=== PATIENT | male | born 1975 | race Caucasian/White ===

== ENCOUNTER 2017-02-13 09:22 | Inpatient (IN) | payer OTHER ==
[~2017-02-13] VITALS: Ht 188 cm; Wt 104.5 kg
--- NOTE | ~2017-02-13 | INDIVTXPLN ---
"PATIENT: HIRA GONZALEZ | | [facility] UNIT #: [id number] | [address] AGE/SEX: 41 M : 71 | [address] | [place] [address] ADMIT/REG DATE: 02/13/17 | ROOM: A.[facility] LOC: ADTC | ADTC | Individualized Treatment Plan Date: 03/08/17 Problem Statement/Issue Identified: I look more at others defects than I look at mine. Goal: I want to look more at what I bowl attendant work on. Objectives/Activities to achieve goal: 1. I will read and complete a denial packet and share what I learned with my counselor and in group. Due Date:03/12/17 Complete: Incomplete: 2. I will read and high lite work I relate to in a Dev Baby packet and share it with my counselor. Due Date:03/13/17 Complete: Incomplete: Client signature Date Counselor signature Date Outcome/Measurement of Progress Towards Goal: Counselor's signature Date "
--- NOTE | ~2017-02-13 | RESCARESUM ---
"PATIENT: HIRA GONZALEZ | | [facility] UNIT #: [id number] | [address] AGE/SEX: 41 M : 71 | [address] | [place] [address] ADMIT/REG DATE: 02/13/17 | ROOM: [facility] LOC: ADTC | ADTC | Summary of Residential Care Primary Counselor: MJ Al, ELIANE, LIYAT Date of Admission: 02/13/17 Date of Discharge: 03/13/17 Referral Source: Probation Primary Care Provider Prior to Admission: None Admitting Diagnosis: F10.20 Alcohol Use Disorder Severe Discharge Diagnosis: Same Goals Achieved: Client did minimal work on his assignments. He appeared to be more focused on others than his self and what his needs to do. He completed a Getting Started packet, a step one, read the chapter on acceptance, wrote feelings letters to his and one together to his daughters, he wa to write them seperately. He was to complete a denial packet but conveniently lost it. Client read a Dev Baby packet but completely missed the point. Client minimized his using triggers and continued to blame others for his drinking and did not own it. Continued Obstacles to Sobriety/Relapse Issues: Client needs to focus on his self and not others and what they need to do and be open enough to look at what he is being told and not thinking he has all the answers. Client did make a good decision to dtay at the [facility] for a while before going back to [place]. Family Issues Addressed: No family issues were addressed as not family wswill ing to come to a family session or family education. Client spent most of the time talking about what his needs to do andhow his drinking did not affect his kids as he was always there with them. y Individual Therapy y Group Therapy y Educational Series on Substance Abuse n Parents/Significant Others Attended Family Program n Acute Medical Problems During the Course of Treatment n Transferred to Hospital During the Course of Treatment y Accepting of Substance Abuse Problem n Non-accepting of Substance Abuse Problem n Required Psychological or Psychiatric Consultation During the Course of Treatment Completed AA Step # one During This Level of Care Significant Incidences During Treatment: Client was getting a little better looking at his self but still thinks he did not do a lot of damage with his drinking. Reason For Discharge: PATIENT: HIRA GONZALEZ | | [facility] UNIT #: [id number] | [address] AGE/SEX: 41 M : 71 | [address] | [place] [address] ADMIT/REG DATE: 02/13/17 | ROOM: [facility] LOC: ADTC | ADT | Summary of Residential Care y Completed Residential TX Goals and Ready For Next Level of Care n Left Tx Against Medical Advice/Treatment Goals Not Complete n Completed Residential Tx Goals But Refusing Continuing Care Recommendations n Discharged Due to Noncompliance/Treatment Goals not Completed n Discharged Earlier Than Planned Due to: Continuing Care Plan/Recommendations: n Intensive Partial Care y Sponsor n Partial Care y AA Meetings/NA Meetings y Outpatient y Co-dependency Services y Therapeutic Community y [address] [place] n Mental Health Therapy n Marriage Counseling n Other Specific Continuing Care Plan: Client went [facility] couple months he said. He appeared to be going for a while but did not comitt to the full recommendations of the [facility]. PRIMARY COUNSELOR: Robson Salguero, MJ, LADC, CSAT"
--- NOTE | ~2017-02-13 | TXPLANREV ---
"PATIENT: HIRA GONZALEZ | | [facility] UNIT #: [id number] | [address] AGE/SEX: 41 M : 71 | [address] | [place] [address] ADMIT/REG DATE: 02/13/17 | ROOM: A.[facility] LOC: ADTC | ADTC | Treatment Plan/Staffing Review Date: 03/08/19 Treatment plan was reviewed and determined appropriate as written: Yes Treatment plan was reviewed and the following changes/addition/deletions are necessary: Client [facility] Discharge plans were reviewed and determined appropriate as previously documented: Yes Discharge plans were reviewed and determined to be as follows: Client is scheduled to discharge on 03/13/17 and will be going to the [facility]. Other pertinent issues discussed during this staffing review include: Client is doing a better job looking at others adn their issues than his own. Staff Present: Maribel Carter, Jes Zambrano, Ludmila Vaughan PRIMARY COUNSELOR: Robson Salguero, MJ, ELIANE, LIYAT Client Signature Counselor Signature Date Time "
--- NOTE | ~2017-02-13 | TXPLANREV ---
"PATIENT: HIRA GONZALEZ | | [facility] UNIT #: [id number] | [address] AGE/SEX: 41 M : 71 | [address] | [place] [address] ADMIT/REG DATE: 02/13/17 | ROOM: A.[facility] LOC: ADTC | ADTC | Treatment Plan/Staffing Review Date: 03/01/17 Treatment plan was reviewed and determined appropriate as written: Yes Treatment plan was reviewed and the following changes/addition/deletions are necessary: No changes Discharge plans were reviewed and determined appropriate as previously documented: Yes Discharge plans were reviewed and determined to be as follows: Client is scheduled to discharge on03/13/17 and is applying at the [facility]. Other pertinent issues discussed during this staffing review include: Clientis doing well and is not goingto have any family here for education so he will go by his self starting today. Staff Present: Stacie Zambrano PRIMARY COUNSELOR: Robson Salguero, MJ, LADC, CSAT Client Signature Counselor Signature Date Time "
--- NOTE | ~2017-02-13 | INDIVTXPLN ---
"PATIENT: HIRA GONZALEZ | | [facility] UNIT #: [id number] | [address] AGE/SEX: 41 M : 71 | [address] | [place] [address] ADMIT/REG DATE: 02/13/17 | ROOM: A.[facility] LOC: ADTC | ADTC | Individualized Treatment Plan Date: 02/22/17 Problem Statement/Issue Identified: I struggle identifying and sharing my feelings. Goal: I want to be able to identify and share my feelings. Objectives/Activities to achieve goal: 1. I will write feelings letters to my and daughters and share them with my counselor and in group. Due Date:03/05/17 Complete: Incomplete: Client signature Date Counselor signature Date Outcome/Measurement of Progress Towards Goal: Counselor's signature Date "
--- NOTE | ~2017-02-13 | INDIVTXPLN ---
"PATIENT: HIRA GONZALEZ | | [facility] UNIT #: [id number] | [address] AGE/SEX: 41 M : 71 | [address] | [place] [address] ADMIT/REG DATE: 02/13/17 | ROOM: A.[facility] LOC: ADTC | ADTC | Individualized Treatment Plan Date: 03/08/17 Problem Statement/Issue Identified: I have not been able to stop drinking in the past. Goal: I want to look at what is causing me to drink and what I can do to avoid or deal with those triggers. Objectives/Activities to achieve goal: 1. I will read and fill out a relapse prevention packet and share it with my counselor and in group. Due Date:03/12/17 Complete: Incomplete: Client signature Date Counselor signature Date Outcome/Measurement of Progress Towards Goal: Counselor's signature Date "
--- NOTE | ~2017-02-13 | CLPRLASSUM ---
"PATIENT: HIRA GONZALEZ | | [facility] UNIT #: [id number] | [address] AGE/SEX: 41 M : 71 | [address] | [place] [address] ADMIT/REG DATE: 02/13/17 | ROOM: [facility] LOC: ADTC | ADTC | Client Problem List/Assessment Summary Date: 02/16/17 Problems identified by the client: Drinking, relationship issues, resentments. Problems identified by significant others: Drinking, honesty. Client's Strengths: Has held a job until last July. Problem List: Code: T Client has relationship problems; need for knowledge in communicating with feelings in significant relationships to help obtain support for treatment and recovery. Code: T Client needs to identify relapse warning signs and develop a plan to deal with them as they arise. Code: T Client has learned to deny or stuff feelings; needs to learn to identify and process feelings with safe people to acquire the necessary skills to maintain senior care sobriety. Code Mcduffie: T: to be addressed during course of treatment O: problem noted, expected to resolve itself with abstinence--specific tx plan not required R: problem noted, will be referred upon discharge PRIMARY COUNSELOR: Robson Salguero, MJ, LADC, CSAT"
--- NOTE | ~2017-02-13 | INDIVTXPLN ---
"PATIENT: HIRA GONZALEZ | | [facility] UNIT #: [id number] | [address] AGE/SEX: 41 M : 71 | [address] | [place] [address] ADMIT/REG DATE: 02/13/17 | ROOM: A.[facility] LOC: ADTC | ADTC | Individualized Treatment Plan Date: 02/22/17 Problem Statement/Issue Identified: I have resentments from my past. Goal: I want to be able to deal with those resentments in a positive manner. Objectives/Activities to achieve goal: 1. I will read and complete a resentment packet and share it with my counselor and in group. Due Date:02/26/17 Complete: Incomplete: Client signature Date Counselor signature Date Outcome/Measurement of Progress Towards Goal: Counselor's signature Date "
--- NOTE | ~2017-02-13 | TXPLANREV ---
"PATIENT: HIRA GONZALEZ | | [facility] UNIT #: [id number] | [address] AGE/SEX: 41 M : 71 | [address] | [place] [address] ADMIT/REG DATE: 02/13/17 | ROOM: [facility] LOC: ADTC | ADTC | Treatment Plan/Staffing Review Date: 02/22/17 Treatment plan was reviewed and determined appropriate as written: Yes Treatment plan was reviewed and the following changes/addition/deletions are necessary: No changes Discharge plans were reviewed and determined appropriate as previously documented: Yes Discharge plans were reviewed and determined to be as follows: Client is scheduled to discharge on 03/13/17 and is planning on goinghome which will make aftercare difficult. Other pertinent issues discussed during this staffing review include: Client is doing ok for his first week. Staff Present: Stacie Zambrano PRIMARY COUNSELOR: Robson Salguero, MJ, ELIANE, LIYAT Client Signature Counselor Signature Date Time "
--- NOTE | ~2017-02-13 | INDIVTXPLN ---
"PATIENT: HIRA GONZALEZ | | [facility] UNIT #: [id number] | [address] AGE/SEX: 41 M : 71 | [address] | [place] [address] ADMIT/REG DATE: 02/13/17 | ROOM: [facility] LOC: ADTC | ADTC | Individualized Treatment Plan Date: 02/15/17 Problem Statement/Issue Identified: I continue to use drugs in spite of the negative consequences I am experiencing. Goal: I want to learn about my addiction and identify consequences of my use and learn to work the AA/NA program. Objectives/Activities to achieve goal: 1. I will read and fill out the Getting Started packet, identifying my feelings about being in treatment and identifying things I do now and things I need to work on as evidenced by his progress notes. Due Date:02/15/17 Complete: Incomplete: 2. I will read a Step 1 booklet and fill out a Step 1 packet identifying 20+ ways I have hurt others and compromised my values (page 10 - 11 of Step 1). This will also help me see how I am powerless and that my life has become unmanageable. I will share it with my counselor and selected parts in group as evidenced by individual and group notes. Due Date:02/19/17 Complete: Incomplete: 3. I will talk at a minimum of 2 meetings a week and get a phone number of a male sponsor I can call while I am in treatment on weekends. I will report my progress to my counselor as evidenced by individual notes. Due Date:Ongoing Complete: Incomplete: 4. I will create gratitude list and add one thing to it each day. Due Date: Ongoing Complete: Incomplete: Client signature Date Counselor signature Date Outcome/Measurement of Progress Towards Goal: Counselor's signature Date "
--- NOTE | 2017-02-13 14:30 | NUR ---
ADMISSION NOTE Client is a 41 year old man from [place]. Client was brought to treatment by from his home where he lives with his family. Clients drug of choice is alcohol, last drank 3 drinks 02/09. Has no known medical allergies and was seen by the DRAnita Brought meds and were given to nurse. Anticipating wifes participation in family. Rights/Responsibilities: Copy given and explained to client. Signed and accepted by client. Client oriented to physical lay out of the ADTC unit, given Big Book and admission packet. A Vince was assigned. Vijay
--- NOTE | 2017-02-13 16:40 | NUR ---
Tech Note: Client is working on his initial paperwork.
--- NOTE | 2017-02-13 19:33 | NUR ---
Education : 1 hour lecture given by counselor on feelings.
--- NOTE | 2017-02-13 22:27 | NUR ---
Tech note: Client played catchphrase for rec, participated in guided meditation and attended AA meeting. SE:1st
--- NOTE | 2017-02-14 04:26 | NUR ---
Bed note: client was in bed with eyes closed and no distress at all bed checks.
--- NOTE | 2017-02-14 04:27 | NUR ---
Med note: Client was up at 0023 for a mucinex. complained he was stuffed up
--- NOTE | 2017-02-14 10:06 | NUR ---
Tech notes: Client is working on Getting started
--- NOTE | 2017-02-14 11:30 | NUR ---
AM GRP 1.5 HRS, Ratio 1:10/ Clt sat mostly quiet, offering very little feedback to those who were sharing.
--- NOTE | 2017-02-14 13:00 | NUR ---
AM GROUP 10:1/1.5 HR: Client and peers participated in the ORIENTATION OF TWO NEW PEERS TO GROUP GUIDELINES, GOALS AND OBJECTIVES. All were involved as three group members processed their work from assignments. Multiple members related, several shared from their own experiences providing support and encouragement. This client was mostly quiet but appeared attentive.
--- NOTE | 2017-02-14 13:31 | NUR ---
Education note: Client watched video
--- NOTE | 2017-02-14 14:51 | NUR ---
Mal. 1 Hr/Client shared why he was here and signed his initial tx plan. Went over his BPS and explained how tx works and what to expect. Client has now visitors list for this weekend as he is seperated now but was encouraged to fill it out incase she would show up.
--- NOTE | 2017-02-14 16:26 | NUR ---
SPIRITUAL EDUCATION 1 HR. Todays topic was the ADDICTIVE SELF vs. SPIRITUAL SELF. We held discussion on who we are in our addiction vs who we are in recovery and contrasted the two.
--- NOTE | 2017-02-14 18:35 | NUR ---
Education: 1 hour lecture on self esteem given by counselor
--- NOTE | 2017-02-14 22:58 | NUR ---
Client did beads for rec and attended N.A.Meeting. SE: N.A.Meeting
--- NOTE | 2017-02-15 04:03 | NUR ---
Bed note: client was in bed with eyes closed and no distress at all bed checks.
--- NOTE | 2017-02-15 11:30 | NUR ---
AM GRP 1.5 HRS, Ratio 1:10/ Clt sat mostly quiet, offering very little feedback to those who were sharing.
--- NOTE | 2017-02-15 15:31 | NUR ---
Tech Note: Client participated in Spiritual Enrichment in the morning and went for an outdoor walk after lunch. Client stated that he is working on, "How to Get Started in Treatment" and Step One.
--- NOTE | 2017-02-15 16:17 | NUR ---
Education 1 Hour: Client heard a presentation on cross addiction.
--- NOTE | 2017-02-15 17:27 | NUR ---
Step ed. 1 hr/ focus was on step one and powerlessness. Each person answered a set of questions on paper and then we discussed out loud. This client participated.
--- NOTE | 2017-02-15 23:15 | NUR ---
TECH NOTE: Client did newcommer bookmarks for REC, participated in guided meditation, and attended AA meeting. Was redirected for wearing lounge pants in hallway SE: all day
--- NOTE | 2017-02-16 01:22 | NUR ---
1 HR EDUCATION: Client watched a video "Say Yes to Life" by Father Dinesh Chisholm
--- NOTE | 2017-02-16 04:46 | NUR ---
Bed Note: CLt lay motionless in bed with eyes closed showing no distress at all bed checks.
--- NOTE | 2017-02-16 13:40 | NUR ---
Morning Group, 11/01, 1.5 hours, Client attended and actively participated in group session. Client was quiet and listened to his peers talk.
--- NOTE | 2017-02-16 14:48 | NUR ---
PEER REVIEWS 1.5 HRS: Clt participated in peer review process and took a risk to give open and honest feedback.
--- NOTE | 2017-02-16 16:35 | NUR ---
Tech Note: Clt watched "Relapse" for afternoon video. Clt is working on Step 1.
--- NOTE | 2017-02-16 22:56 | NUR ---
Tech note: Client watched tv and movies.
--- NOTE | 2017-02-17 05:26 | NUR ---
Bed note : Client was in bed motionless with eyes close at all bed checks.
--- NOTE | 2017-02-17 15:46 | NUR ---
Tech Note: Client attended A.A.Meeting at [facility] and [place] and then helped with the clubhouse cleaning, ate lunch, and listened to a speaker. Client is working on Step1
--- NOTE | 2017-02-17 20:52 | NUR ---
tech note: Client played a game for recreation & attended offsite AA meeting.Client watched tv. SE: AA meeting.
--- NOTE | 2017-02-17 21:30 | NUR ---
tech note: client c/o congestion,mucinex given @ 7949.
--- NOTE | 2017-02-18 05:26 | NUR ---
Bed note: Client was in bed motionless with eyes closed at all bed checks.
--- NOTE | 2017-02-18 15:28 | HP ---
ADMIT: 02/13/2017 RM/LOC: [facility] MR#: [id number] [address] [facility] [facility] [address] [place] [phone] HIRA GONZALEZ [address] [place] [id number] History and Physical SEX: M AGE: 41 : 1975 DATE OF SERVICE: CHIEF COMPLAINT: Alcohol dependency. HISTORY OF PRESENT ILLNESS: Hira is a 41-year-old, white male, admitted to residential level treatment at [place] on February 13, 2017. He states he recently had a 4th offense DUI and was in detention from January 10 through February 06. When he went to court, he was asked to go to alcohol treatment. As a result, he is referred to treatment. Hira's drug of choice on admission is alcohol. He first started drinking at 2 years of age when his stepfather gave it to him. He states in grade school, he never really drank. In high school, he drank 12-15 beers on weekends. In his mid 20s, he started drinking 6-12 beers daily and on weekends. In his 30s, he started drinking a 5th of whiskey a day and at times, he would drink 12-pack of beer as well. His heaviest drinking was the last 2-3 years, when he was drinking up to 1 L of whiskey a day. He states his mother, stepfather, couple of aunts and friends and he just drowned his sorrows with the bottle. His last drink was on February 09, when he had 3 mixed drinks. He states on January 10, he had a couple of beers prior to going to detention. He does admit to a history of alcohol withdrawal seizures. Second drug of choice is denied. Tried pot a couple of times in high school, never really used it. Denies any other illicit drug use. PAST MEDICAL HISTORY: OPERATIONS: Include neck surgery, prior surgery of appendectomy. ILLNESSES: Includes alcohol withdrawal seizures. MEDICATIONS: Currently include: 1. Sertraline 25 mg daily. 2. Quetiapine fumarate 50 mg daily for substance-induced mood disorder. ALLERGIES: NONE. SOCIAL HISTORY: A 41-year-old, white male. He has three children. He and his are trying to work things out. He is currently unemployed. He has done a number of jobs off and on. He smokes half pack a day and chews a can a month. FAMILY HISTORY: Include coronary artery disease in maternal grandfather, cancer in his mother, hypertension in his father, brother who is an active drinking alcoholic and his father of alcohol dependency. Mother was a heavy drinker as well. REVIEW OF SYSTEMS: Remarkable for substance-induced mood disorder. Remainder of review of systems negative. ADMIT: 02/13/2017 RM/LOC: A.[facility] MR#: [id number] [address] [id number] HIRA GONZALEZ [address] [address] History and Physical SEX: M AGE: 41 : 1975 PHYSICAL EXAMINATION: VITAL SIGNS: He is 6 feet 2 inches with a weight of 104.5 kg, blood pressure 150/87, with a temperature of 97.4, pulse of 87, respiratory rate 22. GENERAL APPEARANCE: A 41-year-old male, who is alert, oriented, appears older than stated age. HEENT: Pupils are reactive. Extraocular muscles are intact. TMs normal. Throat unremarkable. NECK: Without nodes or masses. HEART: Regular without murmur. LUNGS: Clear. ABDOMEN: Obese, soft, nontender, benign. Mild hepatomegaly noted. No rigidity, guarding, or rebound. EXTREMITIES: Reveal no clubbing, cyanosis, or edema. NEUROLOGIC: Exam is normal including light touch, strength, DTRs. and RECTAL: Deferred. ASSESSMENT: 1. Alcohol use disorder, severe. 2. History of alcohol withdrawal seizures. 3. Elevated blood pressure, rule out hypertension. 4. Obesity. 5. Substance-induced mood disorder. 6. Tobacco dependency. PLAN: Place him on a multivitamin and thiamine given his history of alcohol use and dependency. Continue with his Zoloft and Seroquel for his substance- induced mood disorder. We will proceed with drug and alcohol abuse and dependency treatment and counseling and further evaluation and management based on course during the hospitalization. Please note he additionally has a diagnosis of hypertension. We will continue with his metoprolol succinate ER 50 mg b.i.d. and do serial blood pressure and heart rate monitoring and blood pressure med adjustments. Please see his hospital record for the details. Ramone Block MD/ humaira JOB #: [id number] CC: Ramone Block, Attending Physician Trav Kiran, Family Physician
--- NOTE | 2017-02-18 16:23 | NUR ---
TECH NOTE: Client participated in Chapter 5 of Big Book study, attended study time, and watched tv/movies. Client was redirected for being in room at study time.
--- NOTE | 2017-02-18 23:49 | NUR ---
tech note: client attended AA Panel & [employer] meeting. Client participated in Community Clean & watched tv. Client was redirected by tech to keep his feet off the furniture. SE: All Day.
--- NOTE | 2017-02-19 04:42 | NUR ---
Bed Note: Clt lay motionless in bed with eyes closed showing no distress at all bed checks.
--- NOTE | 2017-02-19 11:15 | NUR ---
Tech notes: Client is working on BB
--- NOTE | 2017-02-19 12:56 | NUR ---
Morning Group, 10/30 ratio, 1.5 hours, Client attended and actively participated in group discussion. Client was quiet during most of the group but did offer feedback to a peer that has been struggling with an anger problem.
--- NOTE | 2017-02-19 15:41 | NUR ---
Education note: Client attended speaker for education, Bethany on Tobacco
--- NOTE | 2017-02-19 16:00 | NUR ---
Recovery 101 1 hr/ Clients all participated in reading, highlighting and discussing the Big Book on areas about honest, acceptance, living in problem vs living in solution, resentments, 1/2 measures, and the 12 promises.
--- NOTE | 2017-02-19 16:08 | NUR ---
Mal. 1 Hr/Client shared the rest of his GS packet and his step one. He appeared to be avoiding the who am I page in his GS packet and is struggling with how he compromised his values and hurt others with step one. Wants to say his is just as bad as he is and how his DUIS should not have been as he did not feel intoxacated adn he was at home the last two he received. He said the last one he had one drink but looking in deaper it was discovered he had 8 oz's in that one drink which he drank in 15 minutes. Denies his kids have been hurt much or any one else. Minimized not working since last June in that it was not from his drinking.
--- NOTE | 2017-02-19 16:43 | NUR ---
Family contact/Clients wa talked to and she is too far away andhas no place for two of the kids so marcie not make it to family or a family session. She stated he has not been sober for the fourteen years they have been together. Last two years were the most difficult. She is still thinking divorce even though he does not think so.
--- NOTE | 2017-02-19 16:46 | NUR ---
Trauma note/Client has not trauma issues he is willing to work on.
--- NOTE | 2017-02-19 18:19 | NUR ---
Education: 1 hour lecture given by counselor on "forgiveness"
--- NOTE | 2017-02-19 22:38 | NUR ---
Tech note : Client went on a walk for rec and attended an onsite NA meeting. SE; New people
--- NOTE | 2017-02-20 04:18 | NUR ---
Bed note: Client was in bed with eyes closed and no distress at all bed checks.
--- NOTE | 2017-02-20 12:55 | NUR ---
A.M. 1.5 hr res group/ratio 1:10/ Group heard a getting started and a goodbye letter to addiction. Discussed having resentment towards self, how kids are forgiving, and we oriented 3 new group members. This client shared his getting started. He shared his mom of cancer and went quickly after being diagnosed.
--- NOTE | 2017-02-20 13:27 | NUR ---
Tech Note: Client participated in light stretching for morning exercise and went for an outdoor walk in the afternoon. Client stated that he is working on Step One.
--- NOTE | 2017-02-20 13:37 | NUR ---
Education One Hour: Client heard a presentation on Sexually Transmitted Disease.
--- NOTE | 2017-02-20 14:19 | NUR ---
Medication Note: Client took prn mucinex at 0825 . Client took prn ibuprophen for tooth pain rated at 5 at 0850.
--- NOTE | 2017-02-20 16:09 | NUR ---
Relapse Prevention Education, 1.0 hours, Client attended and actively participated in relapse prevention education which focused on a Relapse Prevention Quiz and discussion over the answers.
--- NOTE | 2017-02-20 20:30 | NUR ---
education note: 1 hour lecture by counselor on" what benoit are you willing to pay"
--- NOTE | 2017-02-20 22:58 | NUR ---
Tech note: Client attended the Alumni meeting, participated in guided meditation and attended an onsite AA meeting. SE; Group
--- NOTE | 2017-02-21 04:58 | NUR ---
Bed note: Client was in bed with eyes closed and motionless at all bed checks.
--- NOTE | 2017-02-21 10:41 | NUR ---
Tech notes: Client is working on BB. Missed AM meditation
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
--- NOTE | 2017-02-21 12:37 | NUR ---
Education note: Client had education by [facility]
--- NOTE | 2017-02-21 17:30 | NUR ---
SPIRITUAL EDUCATION 1 HR. Todays topics were orienting newcomers, and taking a look at Zaki Bolaños's 5 SECRETS TO SUCCESS which include a look at the miracles of the human body as blessings.
--- NOTE | 2017-02-21 20:57 | NUR ---
education: 1 hour video on unresolved anger and group discussion with counselor
--- NOTE | 2017-02-21 22:15 | NUR ---
Tech note: Client worked on beaded project and attended an onsite NA meeting. SE; NA meeting
--- NOTE | 2017-02-22 04:05 | NUR ---
Bed note: Client was in bed with eyes closed and no distress at all bed checks.
--- NOTE | 2017-02-22 08:49 | NUR ---
I.S. 1 Hr Client shared his redone Step one values he compromised adn how he hurt his family. Still a little minimazation but doing better looking at it. Talked about aftercare [address] which makes it hard for him. Working on resentments and feelings letters now. Client also shared his gratitude list and did ok with it. Will go to family today.
--- NOTE | 2017-02-22 10:32 | NUR ---
Tech Note: Client stated that he is working on, "Resentment."
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
--- NOTE | 2017-02-22 13:40 | NUR ---
Education 1 Hour: Client heard a presentation from a member of the recovery community who shared his experience, strength and hope.
--- NOTE | 2017-02-22 16:26 | NUR ---
step education 1 hr/ Focus was on step 2, handed out some questions they completed on paper and then opened it up for discussion. This client participated.
--- NOTE | 2017-02-22 23:56 | NUR ---
Tech Note: Client attended Guided Meditation and A.A.Meeting. SE: All Day
--- NOTE | 2017-02-23 04:26 | NUR ---
Eduction: 1 Hour. Client attended "Unresolved Anger" video & discussion presented by staff.
--- NOTE | 2017-02-23 11:30 | NUR ---
GROUP 1.5 HR/ 11:1 Clients all reviewed rules and heard new member share about himself. This client was attentive and gave some feedback. He voiced out after hearing so much pain from addiction that he is "sick of this shit, its evil". He said nayana was normal growing up, he has lost alot of people from this addiction and his was so bad that he had alcoholic withdrawals/hallucinations.
--- NOTE | 2017-02-23 13:00 | NUR ---
PEER REVIEWS 1.5 HRS: Clt participated in peer review process and was able to give open and honest feedback to those receiving a review.
--- NOTE | 2017-02-23 16:28 | NUR ---
Tech Note: Client participated in group walk for exercise and watched "Recovery Issues Part 3" for afternoon video. Client is working on Feelings Letters and Resentments.
--- NOTE | 2017-02-23 22:51 | NUR ---
TECH NOTE: Client participated in reading guidelines and watched tv/movies. SE: all day
--- NOTE | 2017-02-24 04:12 | NUR ---
Bed Note: Clt lay motionless in bed with eyes closed showing no distress at all bed checks.
--- NOTE | 2017-02-24 08:45 | NUR ---
Medication Note: Client took prn mucinex.
--- NOTE | 2017-02-24 16:07 | NUR ---
Tech Note: Client attended NA Panel and is working on Feelings Letters and Resentments.
--- NOTE | 2017-02-24 20:31 | NUR ---
Tech note: Clt played a game for recreation and attended offsite AA mtg. Watched tv, played cards and used phone. SE was phone calls.
--- NOTE | 2017-02-25 04:40 | NUR ---
Bed Note: Clt lay motionless in bed with eyes closed showing no distress at all bed checks.
--- NOTE | 2017-02-25 15:59 | NUR ---
Tech Note: Client participated in Big Book Study. Client stated that he is working on writing Feelings Letters.
--- NOTE | 2017-02-25 22:55 | NUR ---
Tech Note: Clt attended AA panel, watched tv and movies. SE was AA panel.
--- NOTE | 2017-02-26 04:41 | NUR ---
Bed Note: Clt lay motionless in bed with eyes closed showing no distress at all bed checks.
--- NOTE | 2017-02-26 10:18 | NUR ---
Tech notes: Client is working on Resentments,Fl's and mtg with marta
--- NOTE | 2017-02-26 11:30 | NUR ---
Morning Group, 10/31 ration, 1.5 hours, Client attended and actively participated in group discussion. Client shared that he is a man of few words but would like others to know that he is taking in and learning from this experience.
--- NOTE | 2017-02-26 13:32 | NUR ---
Education: Client attended education by Evelyn on Infection prevention.
--- NOTE | 2017-02-26 13:41 | NUR ---
I.S. 1 Hr/Client shared his resentment packet and did minimal work or it was not much of an issue. Focused a lot on what his needs to do and talked about that. Client is wikking to stay in [place] at a [address] to get his feet back on a good foundation. Will call the [facility] for a screening.
--- NOTE | 2017-02-26 16:00 | NUR ---
Recovery 101 1 hr/ Clients all were asked to share what they worked on in treatment or past treatments that really helped them and/or their experience with working an AA/NA program of recovery-what went well. This client was attentive.
--- NOTE | 2017-02-26 18:12 | NUR ---
Education: 1 Hour. Client attended "Adult Children of Alcoholics" lecture presented by staff.
--- NOTE | 2017-02-26 23:38 | NUR ---
tech note: Client played a game for recreation & attended onsite NA meeting. SE: NA meeting.
--- NOTE | 2017-02-27 04:33 | NUR ---
BED NOTE: Client was in bed, motionless with eyes closed all three bed checks.
--- NOTE | 2017-02-27 11:31 | NUR ---
A.M. 1.5 hr res group/ratio 1:10/ Assignments shared were a how to get started and a letter to self. Discussion focused on resenting self, forgivness, feeling afraid and out of place and believing in self. This client participated and gave some feedback. He said he was in fpc which many do not know and he learned from that. He said you can either believe you can or you cant and either way you are right.
--- NOTE | 2017-02-27 16:00 | NUR ---
Relapse Prevention, 1.0 hours, Client attended and actively participated in relapse prevention education which focused on internal and external triggers.
--- NOTE | 2017-02-27 16:42 | NUR ---
Tech Note: Client participated in Nutritional Services presentation and is working on Feelings Letters.
--- NOTE | 2017-02-27 22:43 | NUR ---
Education: 1 hour lecture given by counselor on co-dependency
--- NOTE | 2017-02-27 22:54 | NUR ---
Tech note: clients played catchphrase for rec, participated in guided meditation and attended AA meeting SE:all day
--- NOTE | 2017-02-28 04:38 | NUR ---
bed note: client was in bed with eyes closed and motionless at all bed checks.
--- NOTE | 2017-02-28 09:55 | NUR ---
Tech notes: Client is working on Fl's and mtg with OD
--- NOTE | 2017-02-28 12:59 | NUR ---
AM GROUP 9:10/22 1.5 HR: Client and peers participated in ORIENTATION OF TWO NEW PEERS TO GROUP GUIDELINES, PURPOSE, GOALS AND OBJECTIVES. Group heard several process assignments/issues. Much of the focus was on how deeply kids are affected by a parent"s chemical use, even if the kids don't directly see it. Even during the orientation process, this client confronted a female peer when she said she was court ordered to come to treatment. Staff stopped him and reminded him that this was orientation. Client said, "I know, but I juust think that is a copy and print associate out!" Later, when two res clients were talking about losing custody of their kids, client spouted off about how these individuals need to really look at what they are doing, and how damaging it is to the kids, etc. but really minimized the harm his own family has experienced due to his alcohol use. Staff suggested that any addiction sets up a barrier between the aflicted and anyone to loves him, and is consequently damaged by that emotional abandonment.
--- NOTE | 2017-02-28 13:15 | NUR ---
Education note: Client attended educational speaker Mark Velasco
--- NOTE | 2017-02-28 17:35 | NUR ---
SPIRITUAL EDUCATION 1 HR. Today we used music to invoke discussion, symbolize how it can be either positive spirituality or negative spirituality, and discussed the feelings. We used one song that depicted addiction, one that talked about recovery, and since we are close to Mother's Day, one that depicted addiction in parents and forgiveness.
--- NOTE | 2017-02-28 18:19 | NUR ---
Education: 1 Hour. Client attended "Boudaries" lecture given by staff.
--- NOTE | 2017-02-28 21:57 | NUR ---
tech note: client c/o congestion @ 2113 & was given mucinex & motrin 400 mg.
--- NOTE | 2017-02-28 22:59 | NUR ---
Tech Note: Client played a game for rec, and attended The on unit N.A.Meeting. SE: Nothing
--- NOTE | 2017-03-01 04:30 | NUR ---
Bed Note: Client was in bed with eyes closed and motionless at all bed checks.
--- NOTE | 2017-03-01 11:30 | NUR ---
AM GRP 1.5 HRS, Ratio 1:11/ Clt sat mostly quiet, and only offered feedback on a couple occassions, and it was close to rescuing someone for isolating, stating he understands that, and it's ok, because he does it too. He heard it's not ok to isolate, and that's a huge characteristic of addiction.
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
--- NOTE | 2017-03-01 15:57 | NUR ---
step education 1 hr/ Focus was on step 3 of the 12 steps Made a decision to turn our will and lives over to God. Each person were given questions to answer on paper and then to share and discuss. This client participated.
--- NOTE | 2017-03-01 18:17 | NUR ---
Education 1HR: Clt watched video called "Predator part 1" by Sterling Salgado with staff present.
--- NOTE | 2017-03-01 23:13 | NUR ---
Tech Note: Client took a walk for rec and attended the A.A.Meeting. SE: All Day
--- NOTE | 2017-03-01 23:24 | NUR ---
1:00 pm. Education Note: Client watched video "Inside the Addictive Personality"
--- NOTE | 2017-03-02 04:09 | NUR ---
Bed Note: Client was in bed and motionless at all bed checks.
--- NOTE | 2017-03-02 12:00 | NUR ---
Group 1.5 hr/ 11:1 Clients all in several discussions on recovery and addiction, this client was attentive.
--- NOTE | 2017-03-02 14:33 | NUR ---
PEER REVIEWS 1.5 HRS: Clt participated in peer review process and was able to give open and honest feedback to those receiving a review. Client started to put chairs away while peer review was still going on and was called on it he did stop.
--- NOTE | 2017-03-02 15:43 | NUR ---
Tech Note: Client participated in group walk and watched "Marijuana" by Sterling Salgado. Assignment being worked on is Feelings Letters.
--- NOTE | 2017-03-02 23:24 | NUR ---
Tech note: Client played games and watched movies. Client talked on the phone with his children.
--- NOTE | 2017-03-03 04:03 | NUR ---
Bed note: Client was in bed with eyes closed and no distress at all bed checks
--- NOTE | 2017-03-03 16:57 | NUR ---
Tech Note: Client went to A.A.Meeting at [address]. Client is working on Denial packet and FL's
--- NOTE | 2017-03-03 22:19 | NUR ---
Tech note: Client's were just starting to grill around 6pm so we did not have rec this evening. Client walked to an offsite AA meeting, played games and watched movies. SE; all day
--- NOTE | 2017-03-03 22:29 | NUR ---
tech note: client c/o cold symptoms @ 7899,mucinex was given.
--- NOTE | 2017-03-04 04:47 | NUR ---
tech note: client was motionless in no distress at all bed checks.
--- NOTE | 2017-03-04 17:44 | NUR ---
Tech Note: Client participated in Big Book study. Client stated that he is working on reading the big book.
--- NOTE | 2017-03-04 20:50 | NUR ---
tech note: client c/o congestion @ 2049,mucinex was given.
--- NOTE | 2017-03-04 23:42 | NUR ---
tech note: Client participated in community clean. Client talked on the phone. Client made an inappropriate comment during the client meeting. Client was redirected for coming to get his vitals taken after curfew. SE: Phone.
--- NOTE | 2017-03-05 04:25 | NUR ---
tech note: client was motionless in no distress at all bed checks.
--- NOTE | 2017-03-05 11:30 | NUR ---
Experiential Group 1.5 hr/ Clients all participated in looking at family dynamics and feelings through sculpturing and participated with feedback, relating and/or role-playing. This client was attentive and involved some.
--- NOTE | 2017-03-05 13:54 | NUR ---
I.Marilia. 1 hr/Client shared a feelings letter to his and he is still struggling with looking at his part in that and he kids hurt. Minimizes a lot and lost his denial packet. Thinks he has this under control. Is planning on going to the [facility] at discharge and then back to [facility] to cleat up spme things then back to . PO jose ok with that.
--- NOTE | 2017-03-05 15:48 | NUR ---
Medication Note: Client took prn ibuprophen for H/A rated at 6.
--- NOTE | 2017-03-05 16:16 | NUR ---
RECOVERY 101 1 HR/ Clients all filled out 30 question sheet on consequences of their use, looking at every chemical they have used to help see powerlessness and not minimize any chemicals they have abused. Clients learned about early stages and definition of addiction. This client was involved and seemed to defend how alcoholism didn't cause problems for him, was "functional" alcoholic.
--- NOTE | 2017-03-05 17:52 | NUR ---
Tech Note: Client went for an outdoor walk in the afternoon. Client stated that he is working on reading the Big Book.
--- NOTE | 2017-03-05 20:49 | NUR ---
Education 1 HR: Clt listened to lecture given by counselor on communication.
--- NOTE | 2017-03-05 23:15 | NUR ---
Client played a game for rec and attended on site N.A.Meeting SE: concepción verdugo
--- NOTE | 2017-03-06 04:58 | NUR ---
Bed Note: Client was in bed and motionless at all bed checks
--- NOTE | 2017-03-06 11:38 | NUR ---
GROUP 1.5 HRS. 1:11 Client participated in orienting new peer to purpose and rules of group. Group discussion included the progression of the addiction and the effects on family and lives including suicide attempts. Peer processed goodbye letter to addiction and discussed the need to end the relationship. This client was confronted on the "I" in his statements and being in his own head.
--- NOTE | 2017-03-06 15:20 | NUR ---
Tech Note: Client joined group for afternoon walk, listened to speaker from [facility] and is working on Relapse Prevention and Feelings Letters.
--- NOTE | 2017-03-06 16:06 | NUR ---
Tech Note: Client attended Relapse Prevention education with Jes.
--- NOTE | 2017-03-06 19:56 | NUR ---
Education: 1 hour lecture on STD/AID/HIV giximena by [facility].
--- NOTE | 2017-03-06 22:40 | NUR ---
Tech note : Client worked on [employer] crafts and get well cards. Client participated in guided meditation and went to an onsite AA meeting.
--- NOTE | 2017-03-07 04:17 | NUR ---
Bed note: Client was in bed with eyes closed and no distress at all bed checks
--- NOTE | 2017-03-07 11:16 | NUR ---
Tech Note: Client is working on Feelings Letters and Relapse Prevention.
--- NOTE | 2017-03-07 11:47 | NUR ---
AM GROUP 13:11.5 HR: Client and peers heard multiple clients process assignments and issues. Most did offer feedback, asked clarifying questions and shared from their own experiences. This client did comment from time to time, but ofter his comments in some way are shaming to the addicts in the group. Client stated today that he doesn't understand how addicts get so out of control that they are breaking in to places, stealing, threatening others' lives, carrying weapons, etc. Client clarified that he doesn't get drunk and out of control. Client said he maintains a substantial buzz most of the time rather than getting drunk.
--- NOTE | 2017-03-07 12:20 | NUR ---
[id number] Note: Cient took prn ibuprophen for neck pain rate at 6.
--- NOTE | 2017-03-07 13:19 | NUR ---
Tech Note: Client walked in the hallways for afternoon exercise.
--- NOTE | 2017-03-07 13:24 | NUR ---
Education One Hour: Client heard from members of the recovery community, who shared their experience, strength and hope.
--- NOTE | 2017-03-07 17:24 | NUR ---
SPIRITUAL EDUCATION 1 HR. Topics today were orienting newcomers and then broke into groups and did presentations on their sections from TOWARDS SPIRITUALITY.
--- NOTE | 2017-03-07 18:48 | NUR ---
Education: 1 hour lecture given by counselor on "Disease concept".
--- NOTE | 2017-03-07 22:36 | NUR ---
Tech note: Client played catch phrase for rec and attended an onsite NA meeting. SE: Spirituality
--- NOTE | 2017-03-08 05:02 | NUR ---
Bed note: Client was in bed with eyes closed and no distress at all bed checks.
--- NOTE | 2017-03-08 08:36 | NUR ---
Zenobia 1 Hr/Client shared some of his relapse prevention but struggles to see what his triggers are mainly due to still being in denial about how his dronking is a problem. Was given a Dev Baby packet as he is quick to point out others faults and what they should not could be doing. His is the problem and he is not as bad as his peers.
--- NOTE | 2017-03-08 10:48 | NUR ---
Tech Note; Client participated in light stretching for morning exercise. Client stated that he is working on, "Relapse Prevention" and "Dev Baby."
--- NOTE | 2017-03-08 11:30 | NUR ---
AM GRP 1.5 HRS, Ratio 1:12/ Clt interacted in grp. Discussion was primarily on what to do for fun in recovery, how addiction hurt people, and what they need to do for recovery. This clt appears to always have all the answers, and stated he was already doing what he needed to do, so was asked why he was here. He stated he just kept drinking.
--- NOTE | 2017-03-08 16:21 | NUR ---
Education 1 Hour: Client heard from two members of the recovery community, who shared their experience strength and hope.
--- NOTE | 2017-03-08 16:50 | NUR ---
FAMILY EDUCATION 3 HRS. Client attended alone and took part in the discussion on the disease concept. Client shared chemical history and the consequences.
--- NOTE | 2017-03-08 20:25 | NUR ---
Education: 1 Hour. Client attended Onofre Gaxiola "Unhealthy Families" video.
--- NOTE | 2017-03-08 23:03 | NUR ---
Client went on a walk for rec, participated in guided meditation, and attended the on unit A.A.Meeting. SE: Family
--- NOTE | 2017-03-09 05:39 | NUR ---
tech note: client was motionless in no distress at all bed checks.
--- NOTE | 2017-03-09 11:30 | NUR ---
Group 1.5 hr/ 12:1 Clients heard peers share GS and Step 1 packets, this client was attentive and gave some feedback.
--- NOTE | 2017-03-09 14:52 | NUR ---
Tech Note: Client joined our group walk for exercise. Watched video titled "Sound of Silence" and is working on Feelings Letters.
--- NOTE | 2017-03-09 15:49 | NUR ---
PEER REVIEWS 1.25 HRS: Clt participated in peer reviews and took a risk to give open and honest feedback to those receiving a review. Client had a review done and some of what he heard was he tries really hard being the daed of the group, needs to learn from others, rules with an iron fist, needs to soften up, quick to anger, quiet and harsh, intimidating, is on the fence, not approachable, wants to be in charge all of the time, is impulsive, internalizes his feelings and can get drunk on control.
--- NOTE | 2017-03-09 20:32 | NUR ---
TECH NOTE: Client participated in reading of guidelines, watched TV/movies SE: last weekend here
--- NOTE | 2017-03-10 04:32 | NUR ---
BED NOTE: Client was in bed, motionless with eyes closed all bed checks.
--- NOTE | 2017-03-10 16:24 | NUR ---
Tech Note: Client is working on Feelings Letters.
--- NOTE | 2017-03-10 20:28 | NUR ---
Tech note: Clt played a game for recreation and attended offsite AA mtg. Clt played cards, watched tv and used phone. SE was noemí
--- NOTE | 2017-03-11 04:26 | NUR ---
BED NOTE: Client was in bed motionless with eyes closed all three bed checks.
--- NOTE | 2017-03-11 15:59 | NUR ---
Tech Note: Client participated in Big Book study. Client stated that he is working on writing feelings letters.
--- NOTE | 2017-03-11 23:08 | NUR ---
Tech Note: Client attended the A.A.Panel with Sacha Vargas SE: Big Book Study
--- NOTE | 2017-03-12 04:38 | NUR ---
Bed Note: Client was laying in bed and motionless at all bed checks.
--- NOTE | 2017-03-12 07:34 | NUR ---
Client missed morning meditation, after being woke up twice. He said his new meds are messing with him.
--- NOTE | 2017-03-12 09:50 | NUR ---
Tech note: Client is working on [place], [place] and missed morning meditation.
--- NOTE | 2017-03-12 11:30 | NUR ---
PEER REVIEW 1.5 hr/ Clients had 4 peer reviews and this client gave good feedback and became emotional sharing how he hopes his daughter doesn't become self-destructive over his addiction/behavior. Peers shared how he is one to not cry and yet is that real and serious with his treatment.
--- NOTE | 2017-03-12 12:57 | NUR ---
Education Note: Clients attended speaker for education Kit J.
--- NOTE | 2017-03-12 14:19 | NUR ---
I.S. 1 Hr/Client shared he could not find his denial packet and the [employer] packet was for someone that is narsacistic not him. Also read feelings letter to his daughters which was together and forgot to share feelings. Client is staying in [facility] and not going backl to [place] like he said prior. Best move client has made since being here. Client was told he focuses more on others so he does not have to lookat his stuff. He said it helps him feel good about his self. Still denying his drinkig had anything to do with his failed marriage and is still blaming his for being too young.
--- NOTE | 2017-03-12 18:20 | NUR ---
Education: 1 Hour. Client attended "Feelings" lecture presented by staff.
--- NOTE | 2017-03-12 21:00 | NUR ---
FAMILY EDUCATION 3 HRS., FAMILY GROUP 2 HRS. 1:8 Client attended alone and took part in the discussion on the family roles, codependency and detachment. Client was mostly quiet while peers and families processed emotional feelings letters.
--- NOTE | 2017-03-12 23:35 | NUR ---
tech note: client attended Family Session. Client made excuses in the client meeting for feedback he said he received from staff about focusing on others instead of himself. SE: Family.
--- NOTE | 2017-03-13 04:47 | NUR ---
tech note: client was motionless in no distress at all bed checks.
--- NOTE | 2017-03-13 07:24 | NUR ---
IAnitaS. 1 hr/Client shared he has been struggling the last couple days with sleep and has not been getting up when he is suppose to. Tech shared he has to get him up everyday. Also missing a signiuficant event form again which he said he always gets his in. There have been more misses he just sees his self as better than everyone and rules don't apply to him. First OP appointment is 03/21/17 @ 12:00 pm.
--- NOTE | 2017-03-13 10:15 | NUR ---
GROUP .25 HRS. 1:11 Group discussion included cravings and grief of old lifestyle as well as feelings letters/effects on kids and betraying values. This client was called from group at 10:15 as his ride was here. He then proceeded to tell all group members good-bye and interupted group before he left.
--- NOTE | 2017-03-13 10:21 | NUR ---
Discharge Note: Client discharged with all property and medications that he came to treatment with. After care instructions gone over with client. Had a ride to [facility].
--- NOTE | 2017-04-27 19:05 | DS ---
ADMIT: 02/13/2017 RM/LOC: [facility] MR#: [id number] [address] HIRA GONZALEZ [address] [place] [address] General Discharge Summary SEX: M AGE: 41 : 1975 ADMISSION DATE: 02/13/2017 DISCHARGE DATE: 03/13/2017 INDICATION FOR HOSPITALIZATION: Hira is a 41-year-old, white male, admitted to residential level treatment at [facility] on February 13 after recent fourth offense DUI. He had been in long-term from January 10 through February 06. He went to court and was referred to treatment. His drug of choice on admission was alcohol. Please see his admission H and P for further details regarding his history of present illness, past medical history, physical exam, and assessment at the time of hospitalization. HOSPITAL COURSE: On admission, he was continued on his home medications. He was started on multivitamin and thiamine given his history of alcohol abuse and dependency. Serial blood pressure and heart rate monitoring was undertaken and Toprol dosing was adjusted. During treatment, his primary counselor was Robson Salguero. Hira underwent individual group therapy sessions on drug and alcohol abuse dependency. He completed an educational series on substance abuse. He was overall accepting of substance abuse problems. No family was involved during the family portion of treatment program. Relapse triggers were identified and relapse prevention plan was outlined. Spirituality issues were addressed. He completed step 1 of Alcoholics Anonymous. Reason for discharge was completion of residential level treatment goals. Aftercare recommendations include admission to the [facility] with codependency counseling, sponsor assignment, outpatient counseling, assisted house placement with active AA and NA meeting involvement. DISCHARGE MEDICATIONS: Include: 1. Sertraline 25 mg daily. 2. Quetiapine 50 mg at bedtime. 3. Metoprolol ER 200 mg daily. 4. Acamprosate ER 333 mg two tablets three times a day. ADMIT: 02/13/2017 RM/LOC: [facility] MR#: [id number] [address] HIRA GONZALEZ [address] [place] [address] General Discharge Summary SEX: M AGE: 41 : 1975 5. On discharge, multivitamin once daily and thiamine 100 mg daily. FINAL DISCHARGE DIAGNOSES: Include: 1. Alcohol use disorder, severe. 2. History of alcohol withdrawal seizures. 3. Benign essential hypertension. 4. Exogenous obesity. 5. Substance-induced mood disorder, rule out bipolar. 6. Tobacco dependency. PROCEDURES: Include drug and alcohol abuse dependency treatment and counseling. Please see his hospital record for the details. Ramone Block MD/ humaira JOB #: [id number] CC: Ramone Block MD, Attending Physician Trav Kiran PA-C, Family Physician
== END 2017-03-13 10:24 | disposition home or self-care (01) | DRG 895 ==
LOC: ADTC 13:38
PROVIDERS: ADMIT Family Medicine
PROC: HZ43ZZZ Group Counseling for Substance Abuse Treatment, 12-Step (ICD-10-PCS; principal; 2017-02-13)
PROC: HZ34ZZZ Individual Counseling for Substance Abuse Treatment, Interpersonal (ICD-10-PCS; principal; 2017-02-13)
DX: F10.24 Alcohol dependence with alcohol-induced mood disorder (principal); F31.9 Bipolar disorder, unspecified; I10 Essential (primary) hypertension; F17.210 Nicotine dependence, cigarettes, uncomplicated; F17.220 Nicotine dependence, chewing tobacco, uncomplicated; E66.09 Other obesity due to excess calories; Z81.1 Family history of alcohol abuse and dependence; Z65.3 Problems related to other legal circumstances